=== PATIENT | male | born 1965 | race Caucasian/White ===

== ENCOUNTER 2023-05-07 21:18 | Observation (INO) | payer OTHER, SELFPAY ==
--- NOTE | 2023-05-07 21:28 | PC.NURSE ---
PT ARRIVED TO FLOOR AT 21:25 WITH EMS
[2023-05-07 21:46] VITALS: BP 137/86; PULSE 66; RESP 18; TEMP 36.8; O2SAT 99; BMI 32.0
--- NOTE | 2023-05-07 21:58 | XR_ITS ---
PROCEDURE INFORMATION: Exam: XR Chest Exam date and time: 05/07/2023 11:39 PM Age: 57 years old Clinical indication: Pain; Chest pressure; Additional info: Palpitation TECHNIQUE: Imaging protocol: Radiologic exam of the chest. Views: 2 views. COMPARISON: No relevant prior studies available. FINDINGS: Lungs: Unremarkable. No consolidation. Pleural spaces: Unremarkable. No pleural effusion. No pneumothorax. Heart/Mediastinum: Unremarkable. No cardiomegaly. Bones/joints: Unremarkable. IMPRESSION: No acute findings.
--- NOTE | 2023-05-07 22:00 | PC.NURSE ---
2006- MD Ce called house informing of pt being transferred from [place] ED. 2022- [facility] point access center called at this time. I received pt information and transferred call to hospitalist. Pt assigned to room 212 and report number given to Paulo at [place]. [id number]- Pt arrived to floor.
--- NOTE | 2023-05-07 22:03 | EXP.HP ---
History of Present Illness *Admission Date: 05/07/23 *Reason for visit:: chest palptitaion, abnormal troponin *History of present illness: This is 57 years old white male presented to the emergency department with complaint of chest palpitation. He said that it started on or around 3 PM this afternoon while he was doing homework. He felt minimally short of breath but otherwise denies any chest pain pressure radiating chest pain. checked his pulse and it was 168. He arrived to the ER 3 hours after onset of the symptoms heart rate was 150s and 160s, stat EKG was done and supraventricular tachycardia with fusion complexes was noticed. Patient is that he had a send symptom 8 years ago, he was taken to and saw cardiology for this reason. Patient has never had cardiac catheterization, he never has a stress test done. He takes metoprolol 50 mg at home as well as atorvastatin. 5 mg IV metoprolol push was given at ER, heart rate came back normal sinus rhythm. Troponin was drawed, and found to be elevated.291. Aspirin 81 mg given, Brillinta and levonox, patient was referred to our facility for a higher level of care. Cardiology was consulted. Admitted for further management and observation. Currently patient asymptomatic, denies chest pain shortness of breath or palpitation. Currently on room air, history of sleep apnea. [facility] Disclaimer: The information contained in this section may have been updated after the patient was seen, as this information can be updated by other users. Medical History (Updated 05/07/23 @ 22:39 by Marcelino De La Cruz APRN) History of gastroesophageal reflux (GERD) Hyperlipidemia Hypertension Sleep apnea SVT (supraventricular tachycardia) Family History (Updated 05/07/23 @ 21:58 by Beverly West RN) Other No significant family history Social History (Updated 05/07/23 @ 21:58 by Beverly West RN) Smoking Status: Former smoker alcohol intake: never current occupational status: unemployed Travel in the last 8 weeks: Inside the [place] Review of Systems Review of Systems Review of systems:: pertinent systems reviewed and negative unless documented below Meds Home Medications and Allergies Home Medications Medication Instructions Recorded Confirmed Type hydroxyzine HCl 25 mg tablet 25 mg PO NEEDED PRN Anxiety 05/07/23 05/07/23 History losartan 25 mg tablet 25 mg PO DAILY Hypertension 05/07/23 05/07/23 History metoprolol succinate 50 mg 50 mg PO DAILY Heart rhythm 05/07/23 05/07/23 History tablet,extended release 24 hr pravastatin 40 mg tablet 40 mg PO DAILY Cholesterol 05/07/23 05/07/23 History New Prescriptions to Start Prescriptions: Allergies Allergy/AdvReac Type Severity Reaction Status Date / Time tramadol Allergy Rash Verified 05/07/23 21:57 ceftriaxone [From Rocephin] AdvReac Hypotension Verified 05/07/23 21:57 Exam Data for Last 24 hours Vital signs and Labs for Last 24 Hours: Temp Pulse Resp BP Pulse Ox 98.2 F 66 18 137/86 99 05/07/23 21:46 05/07/23 21:46 05/07/23 21:46 05/07/23 21:46 05/07/23 21:46 I & O for Last 24 hours: Intake & Output 05/04/23 05/05/23 05/06/23 05/07/23 23:59 23:59 23:59 23:59 Weight 107.218 kg Radiology Reports for the Last 24 Hours: Checks x-ray was done. Narrative: Labs reviewed from other facility, grossly negative. Electrolytes normal, white count normal, D-dimer normal. UA positive for cannabis Constitutional Constitutional: no acute distress, obese and cooperative *Routine HEENT Exam Head: Present normocephalic and atraumatic Eye: Present EOMI and PERRL ENT: Present mucous membranes moist *Routine Neck Exam Neck: Present supple, full ROM and trachea midline *Routine Respiratory Exam Respiratory: Present normal respiratory effort, able to speak in complete sentences and symmetric chest movement *Routine Cardiovascular Exam Cardiovascular: Present Normal S1 an
[2023-05-07 23:02] LABS: Troponin I 0.44 ng/ml (0.00-0.034)
[2023-05-08] VITALS (11 sets, daily range): BP systolic 131–150; BP diastolic 64–88; PULSE 55–67; RESP 18; TEMP 36.4–37.1; O2SAT 97–98; BMI 32.0
[2023-05-08 01:24] LABS: Troponin I 0.44 ng/ml (0.00-0.034)
[2023-05-08 04:15] LABS: Troponin I 0.42 ng/ml (0.00-0.034)
--- NOTE | 2023-05-08 06:58 | PC.NURSE ---
Patient has rested thorugh the night. Been NPO since midnight
[2023-05-08 07:21] LABS: Basophils % 0.5 % (0.1-2.0); Eosinophils # 0.1 K/mm3 (0.0-0.4); Eosinophils % 1.7 % (0.1-12.0); Hematocrit 45.3 % (42.0-52.0); Hemoglobin 14.7 g/dL (14.1-18.0); Lymphocytes % 32.3 % (10-50); Mean Corpuscular HGB Conc 32.5 g/dL (31.8-35.4); Mean Corpuscular Hemoglobin 31.3 pg (27.0-31.2); Mean Corpuscular Volume 96.3 fl (80-94); Mean Platelet Volume 8.5 fl (7.4-10.4); Monocytes # 0.5 K/mm3 (0.1-1.0); Monocytes % 7.4 % (1.7-9.3); Neutrophils # 3.6 K/mm3 (1.8-7.8); Neutrophils % 58.1 % (37.0-80.0); Platelet Count 256 K/mm3 (142-424); Red Cell Distribution Width 13.3 % (11.5-17.5); White Blood Count 6.2 K/mm3 (4.8-10.8)
[2023-05-08 07:26] LABS: Chloride 104 mmol/L (98-107); Sodium 141 mmol/L (136-145)
[2023-05-08 07:28] LABS: Alanine Aminotransferase 39 U/L (12-78); Alkaline Phosphatase 67 U/L (38-126); Aspartate Amino Transferase 41 U/L (17-59); Bilirubin,Total 0.8 mg/dl (0.2-1.3); Blood Urea Nitrogen 10 mg/dl (9-20); Carbon Dioxide 31 mmol/L (22.0-30.0); Creatinine Clearance Estimated 111 mL/min (50-200); Estimated Glomerular Filt Rate 69 ml/min (>60); GFR (African American) 83 ML/MIN (>60)
[2023-05-08 07:29] LABS: Albumin Level 3.8 g/dl (3.5-5.0); Albumin/Globulin Ratio 1.3 (1.1-1.8); Calcium 8.4 mg/dl (8.4-10.2); Cholesterol 184 mg/dl (140-200); Glucose 110 mg/dl (74-100); HDL Cholesterol 37 mg/dl (40-60); Magnesium 2.1 mg/dl (1.6-2.3); Total Protein,Serum 6.8 g/dl (6.3-8.2); Triglycerides 155 mg/dl (30-150); VLDL Cholesterol 31 mg/dL (0-40)
[2023-05-08 07:40] LABS: Direct LDL Cholesterol 105.31 mg/dL (100-129)
[2023-05-08 09:00] LABS: Coronavirus 19, PCR Not Detected (NotDetected); Influenza A, PCR Not Detected (NotDetected); Influenza B, PCR Not Detected (NotDetected)
--- NOTE | 2023-05-08 12:00 | EXP.ACUTE.PN ---
Subjective *Date: 05/08/23 *Time: 12:00 Interval history: Patient in good spirits with no acute complaints during time evaluation with Dr. Bennett. Denies chest discomfort. Also denies tachycardia, fevers, chills, shortness of breath, or productive cough overnight. Medical Exam Vital signs and Labs for Last 24 Hours: Vital Signs Temp Pulse Pulse Resp BP BP Pulse Ox 05/08/23 11:01 98.0 F 61 18 131/80 98 05/08/23 08:00 55 L 97 05/08/23 07:21 97.9 F 55 L 18 144/64 H 97 05/08/23 06:18 57 L 05/08/23 04:00 97.6 F 139/78 139/78 98 05/08/23 00:02 66 05/08/23 00:00 98.4 F 67 18 150/82 H 150/82 H 98 05/07/23 21:46 98.2 F 66 18 137/86 137/86 99 Intake and Output 05/07/23 05/08/23 05/08/23 23:59 07:59 15:59 Intake Total 0 / 0 Output Total 0 / 0 0 / 0 Balance 0 / 0 0 / 0 Intake: Intake, Oral Amount 0 / 0 Output: Output, Urine Amount 0 / 0 0 / 0 Other: Number of Unmeasured Voids 1 1 Weight 107.218 kg 107.218 kg Patient Weight 05/08/23 23:59 Weight 107.218 kg Laboratory Results - last 24 hr 05/07/23 22:30: Troponin I 0.44 H 05/08/23 00:52: Troponin I 0.44 H 05/08/23 03:48: Troponin I 0.42 H 05/08/23 07:05: WBC 6.2, RBC 4.70, Hgb 14.7, Hct 45.3, MCV 96.3 H, MCH 31.3 H, MCHC 32.5, RDW 13.3, Plt Count 256, MPV 8.5, Neut % (Auto) 58.1, Lymph % (Auto) 32.3, Atlantic % (Auto) 7.4, Eos % (Auto) 1.7, Baso % (Auto) 0.5, Neut # (Auto) 3.6, Lymph # (Auto) 2.0, Atlantic # (Auto) 0.5, Eos # (Auto) 0.1, Baso # (Auto) 0.0 05/08/23 07:05: Sodium 141, Potassium 4.0, Chloride 104, Carbon Dioxide 31 H, Anion Gap 10.0, BUN 10, Creatinine 1.10, Estimated Creat Clear 111, Estimated GFR 69, Est GFR ( Amer) 83, Glucose 110 H, Calcium 8.4, Magnesium 2.1, Total Bilirubin 0.8, AST 41, ALT 39, Alkaline Phosphatase 67, Total Protein 6.8, Albumin 3.8, Globulin 3.0, Albumin/Globulin Ratio 1.3, Triglycerides 155 H, Cholesterol 184, LDL Cholesterol Direct 105.31, VLDL Cholesterol 31, HDL Cholesterol 37 L, Cholesterol/HDL Ratio 5.0 H 05/08/23 08:52: SARS-CoV-2 (PCR) Not detected, Influenza A Untype (PCR) Not detected, Influenza Type B (PCR) Not detected I & O for Labs for Last 24 Hours: Intake & Output 05/05/23 05/06/23 05/07/23 05/08/23 23:59 23:59 23:59 23:59 Intake Total 0 / 0 Output Total 0 / 0 Balance 0 / 0 Weight 107.218 kg 107.218 kg Respiratory: Present CTA bilaterally; Absent accessory muscle use Cardiac: Present Reg Rate and Rhythm GI: Present soft and normal bowel sounds; Absent guarding or rebound Assessment and Plan *Assessment and plan (1) SVT (supraventricular tachycardia): Status: Acute Category: Medical Code(s): I47.1 - Supraventricular tachycardia (2) Sleep apnea: Status: Acute Qualifiers: Sleep apnea type: obstructive Qualified Code(s): G47.33 - Obstructive sleep apnea (adult) (pediatric) Category: Medical Code(s): G47.30 - Sleep apnea, unspecified (3) Hypertension: Status: Acute Qualifiers: Hypertension type: primary hypertension Qualified Code(s): I10 - Essential (primary) hypertension Category: Medical Code(s): I10 - Essential (primary) hypertension (4) Hyperlipidemia: Status: Acute Qualifiers: Hyperlipidemia type: unspecified Qualified Code(s): E78.5 - Hyperlipidemia, unspecified Category: Medical Code(s): E78.5 - Hyperlipidemia, unspecified (5) History of gastroesophageal reflux (GERD): Status: Acute Category: Medical Code(s): Z87.19 - Personal history of other diseases of the digestive system Plan Resolved SVT: ? Status post Lopressor 5 mg IV push x1 at time of admission. Patient in normal sinus rhythm on Toprol XL 50 mg daily. Continue current management. Continue monitoring on telemetry. Orders echocardiogram, but doubt test can occur over the weekend. Spoke with both Dr. Bonilla
[2023-05-08 12:52] LABS: Troponin I 0.18 ng/ml (0.00-0.034)
--- NOTE | 2023-05-08 16:09 | PC.NURSE ---
pt alert and oriented t/o shift. ls cta. pt denies any chest pain or tightness. pt denies feeling like his heart is racing. pt has been sinus sheila on the monitor. abdomen soft, nontender, bs active. pt's diet was advanced this shift and pt tolerated well. family has been at bedside. pt ambulates in room. call light w/i reach.
[2023-05-09] VITALS: BP 140/74; PULSE 52; PULSE 57; RESP 18; TEMP 36.6; O2SAT 98
[2023-05-09 04:00] VITALS: BP 135/90; PULSE 51; PULSE 54; RESP 18; TEMP 36.8; O2SAT 98; BMI 31.7
--- NOTE | 2023-05-09 05:06 | PC.NURSE ---
Patient has rested through the night. at bedside. No issues stated.
[2023-05-09 07:53] VITALS: BP 144/73; PULSE 56; RESP 18; TEMP 36.6; O2SAT 99
[2023-05-09 08:00] VITALS: PULSE 50
--- NOTE | 2023-05-09 08:22 | EXP.DC.SUM ---
General Admission date:: 05/07/23 Discharge date: 05/09/23 HPI HPI HPI: This is 57 years old white male presented to the emergency department with complaint of chest palpitation. He said that it started on or around 3 PM this afternoon while he was doing homework. He felt minimally short of breath but otherwise denies any chest pain pressure radiating chest pain. checked his pulse and it was 168. He arrived to the ER 3 hours after onset of the symptoms heart rate was 150s and 160s, stat EKG was done and supraventricular tachycardia with fusion complexes was noticed. Patient is that he had a send symptom 8 years ago, he was taken to and saw cardiology for this reason. Patient has never had cardiac catheterization, he never has a stress test done. He takes metoprolol 50 mg at home as well as atorvastatin. 5 mg IV metoprolol push was given at ER, heart rate came back normal sinus rhythm. Troponin was drawed, and found to be elevated.291. Aspirin 81 mg given, Brillinta and levonox, patient was referred to our facility for a higher level of care. Cardiology was consulted. Admitted for further management and observation. Currently patient asymptomatic, denies chest pain shortness of breath or palpitation. Currently on room air, history of sleep apnea. Hospital Course Hospital Course Hospital Course: Patient admitted to medical service, and monitored on telemetry for over 20 hours. Patient given Lopressor 5 mg IV push x1 prior to inpatient admission, and remained in normal sinus rhythm throughout admission. Patient's troponins slightly elevated, yet trended downward during hospital admission. Patient remained chest pain-free throughout medical admission. Dr. Bennett spoke with both Dr. Encinas and Dr. Dorman of cardiology about patient's case 05/08/[address] Dorman recommended that if patient remained symptom-free throughout hospitalization, patient most likely appropriate for outpatient follow-up with Dr. Encinas after hospital discharge. Patient subsequently monitored after Dr. Bennett's conversation with cardiology, then discharged home 05/09/2023 with cardiology follow-up recommended within 2 weeks, and PCP follow-up recommended within 1 week. Patient noted to suffer from asymptomatic bradycardia with heart rate in mid 50s when sleeping during hospitalization. Patient's Toprol therefore decreased from 50 mg to [address] Bennett at time of hospital discharge. Patient also started on aspirin 81 mg p.o. daily by Dr. Bennett at time of hospital discharge for CAD prophylaxis. Exam Data for Last 24 hours Vital signs and Labs for Last 24 Hours: Temp Pulse Resp BP Pulse Ox 97.9 F 50 L 18 144/73 H 99 05/09/23 07:53 05/09/23 08:00 05/09/23 07:53 05/09/23 07:53 05/09/23 07:53 Laboratory Results - last 24 hr 05/08/23 08:52: SARS-CoV-2 (PCR) Not detected, Influenza A Untype (PCR) Not detected, Influenza Type B (PCR) Not detected 05/08/23 12:14: Troponin I 0.18 H I & O for Last 24 hours: Intake & Output 05/06/23 05/07/23 05/08/23 05/09/23 23:59 23:59 23:59 23:59 Intake Total 480 / 480 240 / 240 Output Total 0 / 0 300 / 300 Balance 480 / 480 -60 / -60 Weight 107.218 kg 107.218 kg 106.339 kg Constitutional Constitutional: no acute distress and cooperative *Routine HEENT Exam Head: Present normocephalic Eye: Present EOMI and normal accommodation ENT: Present mucous membranes moist *Routine Neck Exam Neck: Present supple and full ROM Routine Chest/Breast/Axilla Exam Chest wall: Absent tenderness *Routine Respiratory Exam Respiratory: Present CTA bilaterally and normal respiratory effort; Absent accessory muscle use *Routine Cardiovascular Exam Cardiovascular: Present RRR, Normal S1 and Normal S2 *Routine Abdominal Exam Abdominal: Present soft and normoactive bowel sounds *Routine Rectal Exam Comments: deferred *Routine Exam Comments: deferred *Routine Extremities Exam Extremities: Prese
--- NOTE | 2023-05-10 14:50 | CARE MANAGER ---
Contacted patient related to hospital discharge. He states he is doing better. He has follow up with PCP tomorrow. He has not changed his Metoprolol dose since discharge as instructed because he wants to speak with his PCP first. He also is unsure that he will follow with cardiology here and will discuss that with Cherelle Reddy as well. He denies any other questions.
== END 2023-05-09 09:24 | disposition home or self-care (01) ==
PROVIDERS: Internal Medicine; Nurse Practitioner Family; Admitting Provider Internal Medicine Adolescent Medicine; Visit Provider Internal Medicine Adolescent Medicine
DX: I47.1 Supraventricular tachycardia (principal); I21.4 Non-ST elevation (NSTEMI) myocardial infarction; I10 Essential (primary) hypertension; F12.20 Cannabis dependence, uncomplicated; K21.9 Gastro-esophageal reflux disease without esophagitis
CPT/HCPCS: 36415; 71046; 80053; 80061; 83735; 84484; 85025; 87635; 87636; C9803; G0378; U0003; U0005